=== PATIENT | male | born 1955 | race African-American/Black ===

== ENCOUNTER 2023-11-30 08:26 | Day surgery (SDC) | payer OTHER, MEDICAID ==
[~2023-11-30 08:26] MED LIST: EPINEPHrine 0.3 MG in Ophthalmic Irrigation Solution 500 ML IRR SCH
[2023-11-30] MEDS ORDERED: Cyclopentolate 1% Opth Drop 2 ML BOT ONE (09:07)
[2023-11-30] MEDS ORDERED: PHENYLephrine 2.5% Ophth Soln 15 ml Bottle ONE (09:07)
[2023-11-30] MEDS ORDERED: Lidocaine 1% PF 5 ML VIAL ONE ×2 (10:19→10:48)
[2023-11-30] MEDS ORDERED: Midazolam HCl 2 mg/2 ml Vial ONE (10:19)
[2023-11-30] MEDS ORDERED: PROPOFOL 20 ML ONE (10:19)
[2023-11-30] MEDS ORDERED: fentaNYL 50 mcg/mL 1 mL Vial ONE (10:19)
[2023-11-30] MEDS ORDERED: SUCCINYLCHOLINE/SOD CL,ISO/PF 200 MG/10 ML SYRINGE FS ONE (10:29)
[2023-11-30] MEDS ORDERED: CEFAZOLIN 1 GM VIAL ONE (10:48)
[2023-11-30] MEDS ORDERED: Maxitrol 0.1% Opth Oint 3.5 GM TUBE ONE (10:48)
[2023-11-30] MEDS ORDERED: Rocuronium Bromide 10 MG/ML (10ML VIAL) ONE (10:48)
[2023-11-30] MEDS ORDERED: Bupivacaine 0.75% 10 ML VIAL ONE (10:48)
[2023-11-30] MEDS ORDERED: Triamcinolone 40 MG/ML VIAL ONE (10:48)
[2023-11-30] MEDS ORDERED: Lidocaine 4% PF 5 ML AMP ONE (10:48)
[2023-11-30] MEDS ORDERED: SUGAMMADEX SODIUM 200 MG/2 ML VIAL ONE (10:49)
[2023-11-30] MEDS ORDERED: Ondansetron PF 4 MG/2 ML Vial ONE (10:51)
[2023-11-30] MEDS ORDERED: PHENYLEPHRINE-NS 100 MCG/ML 10 ML SYRINGE ONE (11:19)
[2023-11-30] MEDS ORDERED: ePHEDrine Sulfate 50 MG/10 ML VIAL ONE (12:12)
== END 2023-11-30 14:46 | disposition home or self-care (01) ==
LOC: SDC 08:26
PROVIDERS: ATTEND Ophthalmology Retina Specialist
PROC: 08T53ZZ Resection of Left Vitreous, Percutaneous Approach (ICD-10-PCS; principal; 2023-11-30)
PROC: 08DK3ZZ Extraction of Left Lens, Percutaneous Approach (ICD-10-PCS; 2023-11-30)
DX: H27.02 Aphakia, left eye (principal); H59.022 Cataract (lens) fragments in eye following cataract surgery, left eye; Z79.4 Long term (current) use of insulin
CPT/HCPCS: 66850; 67036; 82962; J0171; J0690; J2250; J2405; J2704; J3010; J3301; J3490; 36416

== ENCOUNTER 2024-02-01 07:16 | Day surgery (SDC) | payer OTHER, MEDICAID ==
[2024-01-31 14:08] VITALS: BMI 25.7
[2024-02-01] MEDS ORDERED: Famotidine/PF 20 mg/2ml Vial ONE (07:45)
[2024-02-01] MEDS ORDERED: PHENYLephrine 2.5% Ophth Soln 15 ml Bottle ONE (07:49)
[2024-02-01] MEDS ORDERED: Cyclopentolate 1% Opth Drop 2 ML BOT ONE (07:49)
[2024-02-01] MEDS ORDERED: Lidocaine 2% PF 5 ML VIAL ONE (08:47)
[2024-02-01] MEDS ORDERED: fentaNYL 50 mcg/mL 1 mL Vial ONE ×2 (08:47→09:38)
[2024-02-01] MEDS ORDERED: PROPOFOL 20 ML ONE (08:47)
[2024-02-01] MEDS ORDERED: PHENYLEPHRINE-NS 100 MCG/ML 10 ML SYRINGE ONE (09:33)
[2024-02-01] MEDS ORDERED: ePHEDrine Sulfate 50 MG/10 ML VIAL ONE (09:43)
[2024-02-01] MEDS ORDERED: GLYCOPYRROLATE/PF 0.2 MG/ML VIAL ONE (09:48)
[2024-02-01] MEDS ORDERED: Acetylcholine 20 MG/2 ML VIAL (OR CHARGE) ONE (10:44)
[2024-02-01] MEDS ORDERED: Ondansetron PF 4 MG/2 ML Vial ONE (11:10)
== END 2024-02-01 13:30 | disposition home or self-care (01) ==
LOC: SDC 07:16
PROVIDERS: ATTEND Ophthalmology Retina Specialist
PROC: 08PK3JZ Removal of Synthetic Substitute from Left Lens, Percutaneous Approach (ICD-10-PCS; principal; 2024-02-01)
PROC: 08RK3JZ Replacement of Left Lens with Synthetic Substitute, Percutaneous Approach (ICD-10-PCS; 2024-02-01)
DX: T85.22XA Displacement of intraocular lens, initial encounter (principal); I10 Essential (primary) hypertension; J45.909 Unspecified asthma, uncomplicated; F17.200 Nicotine dependence, unspecified, uncomplicated; E11.9 Type 2 diabetes mellitus without complications; Z79.899 Other long term (current) drug therapy
CPT/HCPCS: 66986; 82962; J0171; J2001; J2405; J2704; J3010; J3490 ×2; V2632; 36416